=== PATIENT | female | born 1975 | race Caucasian/White ===

== ENCOUNTER 2023-07-13 11:41 | Outpatient (REF) | payer OTHER, SELFPAY ==
[2023-07-13 13:51] LABS: Hematocrit 44.6 % (37.0-47.0); Hemoglobin 14.4 g/dl (12.0-16.0); Mean Corpuscular HGB Conc 32.3 g/dl (31.0-35.0); Mean Corpuscular Hemoglobin 30.1 pg (27.0-33.0); Mean Corpuscular Volume 93.1 fL (80.0-98.0); Mean Platelet Volume 9.4 fL (9.4-12.3); Platelet Count 324 X10*3/uL (160-400); Red Blood Count 4.79 X10*6/uL (4.20-5.50); Red Cell Distribution Width 12.9 % (11.0-16.0)
[2023-07-13 14:41] LABS: Alanine Aminotransferase 16 U/L (0-31); Albumin Level 4.2 g/dL (3.5-5.0); Alkaline Phosphatase 66 U/L (39-117); Anion Gap 12 (12-20); Aspartate Amino Transferase 15 U/L (5-31); Bilirubin Total 0.6 mg/dL (0.0-1.0); Blood Urea Nitrogen 8 mg/dL (9-16); C Reactive Protein 2.51 mg/dL (< or = 0.50); Calcium 9.8 mg/dL (8.4-10.2); Carbon Dioxide 31 mmol/L (22-29); Chloride 102 mmol/L (96-108); Estimated Glomerular Filt Rate > 60; Glucose Random 83 mg/dL (60-115); Potassium 4.2 mmol/L (3.3-5.1); Sodium 141 mmol/L (135-145); Total Protein 7.4 g/dL (6.5-8.0)
[2023-07-13 14:46] LABS: TSH reflex Free T4 2.82 uIU/mL (0.32-4.0)
[2023-07-16 13:33] LABS: Transglutaminase IgA <1.0 U/mL
[2023-07-16 13:58] LABS: Immunoglobulin A 223 mg/dL (47-310)
== END 2023-07-13 11:42 | disposition home or self-care (01) ==
LOC: HO.LAB 11:41
PROVIDERS: PCP Internal Medicine; Visit Provider Internal Medicine
DX: R10.84 Generalized abdominal pain (principal); K52.9 Noninfective gastroenteritis and colitis, unspecified; R63.4 Abnormal weight loss
CPT/HCPCS: 36415; 80053; 82784; 84443; 85027; 86140; 86364

== ENCOUNTER 2023-07-13 11:41 | Outpatient (AMB) | payer OTHER, SELFPAY ==
--- NOTE | 2023-07-13 11:50 | MHC.OFFVIS ---
Intake Vital Signs 07/13/23 11:51 Height 5 ft 10 in Weight 198 lb 6.656 oz BMI 28.5 BP 117/79 Blood Pressure Location Lt brachial Position Sitting Pulse 90 Intake Visit Reasons: abdominal pain, r/o Chrons with [facility] Intake Note: Waleska presents in the office as a new patient for abdominals pains to rule out crohns. CC: ED in over the weekend and she states that her body is just going haywire. Allergies No Known Allergies Allergy (Verified 07/13/23 11:51) HPI HPI Comments History of Present Illness Details This is a 48 y.o F with no significant PMH who is here for gastrointestinal sx. Pt reports onset of abdominal pain and watery diarrhea suddenly in March assoc with loss of appetite and weight loss of 10 lbs since Mar. Sx lasted a few weeks before getting better spontaneously. Pt underwent infectious work up which was negative. Had return of sx in May at which point had Prednisone and Flagyl Rxed for 2 weeks. Abd pain improved but diarrhea was more or less unchanged. Pt has also noticed other sx including a rash on her legs which she describes as red raised lesions on her shins as well as knee pain and stiffness. Also reports 4 days of eye redness which was painless and without discharge. Also was seen in [facility] for lower back pain with L hip pain past weekend. Fam hx neg for CRC or IBD. Review of Systems Const All systems reviewed & are unremarkable except as noted in HPI and below Physical Exam Vital Signs: Last Vital Signs Pulse 90 07/13/23 11:51 BP 117/79 07/13/23 11:51 BMI result Body Mass Index 28.5 Gen appear: NAD HEENT: nonicteric, no cervical lymphadenopathy Abd: soft, nontender, nondistended, bowel sounds + Ext: no peripheral edema Neuro: A/Ox3, noted to move all extremities spontaneously Psych: interacting appropriately Assessment & Plan Assessment & Plan (1) Diffuse abdominal pain: Code(s): R10.84 - Generalized abdominal pain (2) Unintentional weight loss: Code(s): R63.4 - Abnormal weight loss (3) Chronic diarrhea: Code(s): K52.9 - Noninfective gastroenteritis and colitis, unspecified Plan DDx include IBD rosalia given extra-intestinal manifestations including rash and joint pains, celiac, SIBO, secretory diarrhea, IBS, malignancy less likely. Plan: - CBC, CMP - CRP and fecal calpro - celiac serology - TSH to r/o hyperthyroidism - EGD/colo to be booked in 4-6 weeks for luminal eval. Split PEG prep Rxed and instructions reviewed. Follow up after endoscopy Orders: Orders Calprotectin, Fecal Today K52.9 - Noninfective gastroenteritis and colitis, unspecified Complete Blood Count no Diff Today K52.9 - Noninfective gastroenteritis and colitis, unspecified Immunoglobulin A Today K52.9 - Noninfective gastroenteritis and colitis, unspecified C Reactive Protein Today K52.9 - Noninfective gastroenteritis and colitis, unspecified Comprehensive Met. Panel Today K52.9 - Noninfective gastroenteritis and colitis, unspecified Transglutaminase IgA Today K52.9 - Noninfective gastroenteritis and colitis, unspecified TSH reflex Free T4 Today K52.9 - Noninfective gastroenteritis and colitis, unspecified Medications: New peg 3350-electrolytes 236-22.74-6.74 -5.86 gram (Golytely) as per split prep instructions, until fecal effluent is clear 240 mL PO Q10M 4,000 mL 0RF colonoscopy Coding Level of Care Code New Pt Level 4 (22801) Diagnoses Diffuse abdominal pain R10.84 Unintentional weight loss R63.4 Chronic diarrhea K52.9
[2023-07-13 11:51] VITALS: BP 117/79; PULSE 90; BMI 28.5
== END 2023-07-13 12:31 | disposition home or self-care (01) ==
PROVIDERS: PCP Internal Medicine; Visit Provider Internal Medicine
DX: R10.84 Generalized abdominal pain (principal); R63.4 Abnormal weight loss; K52.9 Noninfective gastroenteritis and colitis, unspecified
CPT/HCPCS: 99204

== ENCOUNTER 2023-07-27 10:48 | Outpatient (REF) | payer OTHER, SELFPAY ==
[2023-08-02 17:48] LABS: Calprotectin, Fecal 1940 mcg/g
== END 2023-07-27 10:49 | disposition home or self-care (01) ==
LOC: HO.LNP 10:48
PROVIDERS: Visit Provider Internal Medicine
DX: K52.9 Noninfective gastroenteritis and colitis, unspecified (principal)
CPT/HCPCS: 83993

== ENCOUNTER 2023-10-18 06:19 | Day surgery (SDC) | payer OTHER, SELFPAY ==
--- NOTE | 2023-10-17 12:03 | HO.ANESPROP2 ---
Documented by User: Reva Leger NP 10/17/23 12:03 HPI - Anesthesia Eval Consult details Narrative: 48yo F for Upper Endoscopy and Colonoscopy PMFSH Active Problems Active Problems: All Active Problems Unintentional weight loss (Acute) Diffuse abdominal pain (Acute) Chronic diarrhea (Acute) Surgical History Surgical History (Updated 10/18/23 @ 06:30 by Salina Denton, RN) Previous section Social History Social History Patient Tobacco Use Status: Never used Tobacco Use of substances other than those prescribed or required for medical reasons: No Are you DNR?: No Advance Directives: No Advance Directives Information Provided: Yes Meds Allergies Allergy/AdvReac Type Severity Reaction Status Date / Time No Known Allergies Allergy Verified 10/18/23 06:30 Home Medications ?Medication ?Instructions ?Recorded ?Confirmed ?Last Taken ?Type Saccharomyces boulardii 250 mg 250 mg PO BID 07/13/23 Unknown History capsule (Daily Probiotic (S. boulardii)) turmeric 400 mg capsule mg PO 07/13/23 Unknown History Assessment and Plan Assessment Anesthesia Assessment: Chart Reviewed Documented by User: Matt Mcintosh MD 10/18/23 07:26 PMFSH Family History Family history of problems with anesthesia: No Surgical History Surgical History (Updated 10/18/23 @ 06:30 by Salina Denton RN) Previous section History of Problems with Anesthesia: No Social History Social History Patient Tobacco Use Status: Never used Tobacco Use of substances other than those prescribed or required for medical reasons: No Are you DNR?: No Advance Directives: No Advance Directives Information Provided: Yes Meds Allergies Allergy/AdvReac Type Severity Reaction Status Date / Time No Known Allergies Allergy Verified 10/18/23 06:30 Home Medications ?Medication ?Instructions ?Recorded ?Confirmed ?Last Taken ?Type Saccharomyces boulardii 250 mg 250 mg PO BID 07/13/23 Unknown History capsule (Daily Probiotic (S. boulardii)) turmeric 400 mg capsule mg PO 07/13/23 Unknown History Exam Airway Mallampati Class: II TM Dist: >3cm Neck ROM: Full Loose/Missing/Broken Teeth: No Heart: rrrcta Lungs: cta Assessment and Plan Assessment Anesthesia Assessment: Anesthesia Plan Discussed Final Anesthetic Review Family History of Problems with Anesthesia: No History of Problems with Anesthesia: No NPO: Yes ASA Class: II Final Preanesthetic Review: No Changes in Pt Med Stat, Meds/Allgs Chart Reviewed, Consent Obtained/Reviewed and Anes Risks/Benef Reviewed Patient Risk: Intermediate Procedure Risk: Intermediate Anesthetic Plan Anesthetic Plan: TIVA Disposition: Standard PACU
[2023-10-18 06:31] VITALS: BMI 29.1
[2023-10-18 06:55] VITALS: BP 127/89; PULSE 69; RESP 15; TEMP 36.6; O2SAT 96
[2023-10-18] MEDS: Lactated Ringers 1,000 ML 100 ML IVCONT (07:00)
[2023-10-18 07:13] LABS: UPreg QC Valid YES; Urine Pregnancy NEGATIVE (NEGATIVE)
--- NOTE | 2023-10-18 07:53 | MHC.SHP ---
Pre-Procedural Eval Section A - 24 Hr Update-Section A only Date of Service: 10/18/23 Section B - Complete if H&P > 30 days Chief Complaint: Noninfective gastroenteritis and colitis, Relevant Family History (Specify if Yes): No Relevant Social History: None Present Medications: None Medical History: No relevant PMH History of Previous Operations: No relevant previous surgery Allergies: Allergies Allergy/AdvReac Type Severity Reaction Status Date / Time No Known Allergies Allergy Verified 10/18/23 06:30 Review of Systems Review of Systems Comment: 10 point ROS negative except as previously documented Exam Exam Comment: Gen appear: No acute distress HEENT: no icterus Chest: No overt resp distress Abd: soft, nontender, nondistended Psych: Stable affect, answering questions appropriately Neuro: A/Ox3 noted to move all extremities spontaneously Ext: no peripheral edema Plan Diagnosis/Plan: Unchanged I have reviewed the history and physical and performed a pertinent physical examination on my patient. No changes have occurred unless specified. Patient reports doing acupuncture therapy, and has noticed improvement in her abdominal pain as well as diarrhea. Weight curve has stabilized. Time Spent With Patient Time: Total time managing care of this patient today ____ minutes.
--- NOTE | 2023-10-18 07:54 | P.OPN-COLO_ITS ---
Colonoscopy Operative Note Operative Note Date of Service: 10/18/23 Narrative: Procedure: Upper endoscopy and colonoscopy Indication: Abd pain, diarrhea, weight loss Endoscopist: Shirley Rainey MD Anesthesia Provider: Dr Howard Mcintosh Anesthesia type: MAC Instrument: [id number] and [id number]-[id number] EGD Procedure:?? The procedure, indications, preparation and potential complications were reviewed with the patient, who indicated understanding and gave written informed consent to proceed. The endoscope was introduced through the mouth, and advanced to the 2nd part of the duodenum. The mucosa was carefully examined on slow withdrawal of the endoscope. The patient tolerated the procedure well. There were no immediate complications.? EGD Findings:? * Esophagus:? Normal esophageal mucosa. Z line was at 40 cm. There was a small hiatal hernia. Middle and lower esophagus biopsies were taken to rule out eosinophilic esophagitis. * Stomach:? Normal gastric mucosa. Retroflexion was performed in the cardia that showed Hill grade 2 hiatal hernia. Random cold forceps biopsies were taken to rule out H pylori. * Duodenum:? Erythema and erosions in the duodenal bulb. Cold forceps biopsies were taken from the duodenal bulb and 2nd portion of the duodenal to rule out celiac sprue. Colonoscopy Procedure:? The patient was then turned for the colonoscopy. A digital rectal exam was performed which was abnormal for external hemorrhoids.? A distal attachment cap was affixed to the tip of the scope and the colonoscope was then inserted through the anus and advanced through the colon and advanced to the cecum at 75 cm and terminal ileum.? Appendiceal orifice and ileocecal valve were identified. Mucosa was carefully examined under high definition white light as the instrument was slowly withdrawn in a retrograde panoramic fashion. Retroflexion was performed in ascending colon and rectum. The procedure was not difficult. The quality of the prep was BBPS: 2+2+2 = adequate Withdrawal time 10 minutes Limitations: No limitations Findings: Mucosa: Normal colon mucosa and terminal ileum mucosa. Cold forceps biopsies were taken from the right and left side of the colon to rule out microscopic colitis. Protruding lesions: * Two sessile polyp of size 1-2 mm were noted in the transverse colon. Pit pattern appeared normal, but the polypoid tissue was excised completely anyway with cold forceps. * Large internal hemorrhoids without stigmata of recent bleeding. Impression: 1. Normal esophagus (biopsy) 2. Hiatal hernia 3. Normal stomach (biopsy) 4. Bulbar duodenitis (biopsy) 5. Normal colon and terminal ileum mucosa (biopsy) 6. Two polyps removed 7. Internal and external hemorrhoids Recommendations:?? * Follow-up path results * Start omeprazole 20 mg once daily for duodenitis, to be continued for 6-8 weeks. * No obvious colitis was noted on exam today, despite a high fecal calpro of >1900 in July. * If no histological evidence of inflammatory colitis either, we will proceed with CT enterography. * Repeat colonoscopy for asymptomatic colorectal cancer screening in 7-10 years.
[2023-10-18 08:40] VITALS: BP 110/73; PULSE 68; RESP 17; TEMP 36.3; O2SAT 98
[2023-10-18 08:55] VITALS: BP 112/72; PULSE 72; RESP 16; O2SAT 99
[2023-10-18 09:10] VITALS: BP 115/69; PULSE 70; RESP 16; TEMP 36.3; O2SAT 99
== END 2023-10-18 09:27 | disposition home or self-care (01) ==
PROVIDERS: Nurse Practitioner; PCP Internal Medicine; Visit Provider Internal Medicine
PROC: (CPT 45380; principal; 2023-10-18 07:40)
DX: K52.9 Noninfective gastroenteritis and colitis, unspecified (principal); R10.84 Generalized abdominal pain; R63.4 Abnormal weight loss; Z68.28 Body mass index [BMI] 28.0-28.9, adult; K63.5 Polyp of colon; K64.8 Other hemorrhoids; K64.4 Residual hemorrhoidal skin tags; K29.80 Duodenitis without bleeding; K44.9 Diaphragmatic hernia without obstruction or gangrene
CPT/HCPCS: 45380; 43239; 36415; 81025; 81405; 81479; 82397; 83520; 86140; 88305; 88313; 88342; 88346; 88350; J2704

== ENCOUNTER → 2023-10-18 06:19 | Outpatient (BNV) | payer OTHER, SELFPAY | PROVIDERS: PCP Internal Medicine; Visit Provider Internal Medicine | DX: K29.80 Duodenitis without bleeding (principal); R63.4 Abnormal weight loss; R19.7 Diarrhea, unspecified; K64.8 Other hemorrhoids; D12.3 Benign neoplasm of transverse colon | CPT/HCPCS: 43239; 45380 ==

== ENCOUNTER 2023-12-27 08:01 | Outpatient (REF) | payer OTHER, SELFPAY ==
--- NOTE | ~2023-12-27 | CT_ITS ---
EXAMINATION: CT ENTEROGRAPHY ABDOMEN AND PELVIS WITH CONTRAST CLINICAL INFORMATION: Gastroenteritis and colitis, unspecified. COMPARISON: None available. TECHNIQUE: Incomplete ingestion of oral contrast; per the technologist, the patient drank a total of 65 mL of Isovue 350. The patient was injected with 85 mL Omnipaque 350 intravenous contrast which was administered without adverse effect. Coronal and sagittal reformatted images were obtained at the technologist's workstation. This CT examination was performed using dose optimization techniques as appropriate, variously including the following: *Automated exposure control *Adjustment of mA and/or kV according to patient size (this includes techniques or standardized protocols for targeted exams where dose is matched to indication/reason for exam; i.e. extremities or head) *Use of iterative reconstruction technique DLP: 676 mGy-cm FINDINGS: GASTROINTESTINAL FINDINGS: Stomach: Well-distended and normal in appearance. Small intestine: Limited evaluation due to underdistention. Within limitations, no significant hyperenhancement or inflammatory changes. Normal appearance of the terminal ileum and appendix. Large intestine: A few colonic diverticuli without pericolonic inflammatory changes. Round high density observation in the splenic flexure measuring 0.8 cm (5:261) could represent ingested debris, high density stool or a polyp. Additional findings: No abnormal fatty proliferation or enhancement of the vasa recta. No significant mesenteric or retroperitoneal lymphadenopathy is seen. No abdominal abscess or fistulous tract demonstrated. ABDOMINAL AND PELVIC CT FINDINGS: Liver, gallbladder, biliary tract: The liver is normal in size, morphology and attenuation. No liver lesion. Normal appearance of the gallbladder. No biliary ductal dilatation. Pancreas: A 0.8 cm pancreatic lipoma versus fatty cleft is noted in the anterosuperior distal body (4:24), for which no imaging followup is recommended. Spleen: Unremarkable. Adrenal glands and kidneys: No adrenal nodule/mass. Symmetric nephrograms. No nephrolithiasis or hydronephrosis. Extrarenal pelvis with mild pelviectasis, AP diameter 2.5 cm. Bladder: Unremarkable. Pelvis: IUD in satisfactory positioning within the endometrial canal. Benign-appearing 3.5 cm right ovarian cyst, almost certainly benign and for which no imaging followup is recommended. Asymmetric enlargement of left periuterine/parametrial vasculature and left gonadal vein which could indicate pelvic venous insufficiency. Lymphovascular structures: No lymphadenopathy. Normal caliber abdominal aorta. The main portal vein and SMV are patent. Bones: Nonaggressive-appearing fibro-osseous lesion in the posterior right iliac bone measuring 1.8 cm (5:591). Nonaggressive-appearing sclerotic foci in the pelvis, for example posterior left acetabulum (5:757), most likely representing bone islands. Lung bases: No focal consolidation or pleural effusion. CT/CT enterography IMPRESSION: Within limitations of small bowel underdistention, no definite abnormality to suspect active inflammatory bowel disease. A 0.8 cm high density oval observation in the colonic splenic flexure could represent ingested debris, stool or a polyp; consider further evaluation with colonoscopy. Asymmetric enlargement of left periuterine/parametrial vasculature and left gonadal vein which could indicate pelvic venous insufficiency. Electronically signed by: Michelle Patrick MD 03/04/2024 04:13 PM EDT
[2023-12-27 09:30] LABS: MANUAL DIFF FLAG NO
[2023-12-27 09:51] LABS: Basophils Absolute Auto 0.1 X10*3/uL (0.0-0.2); Basophils Percent Auto 0.8 % (0-2); Eosinophils Absolute Auto 0.2 X10*3/uL (0.0-0.4); Eosinophils Percent Auto 3.2 % (0-4); Hemoglobin 14.9 g/dl (12.0-16.0); Imm Gran Abs Auto 0.02 X10*3/uL (0.00-0.03); Imm Gran Pct Auto 0.3 % (0.0-0.4); Lymphocytes Absolute Auto 1.5 X10*3/uL (1.2-4.9); Lymphocytes Percent Auto 25.6 % (20-40); Mean Corpuscular HGB Conc 33.1 g/dl (31.0-35.0); Mean Corpuscular Hemoglobin 31.2 pg (27.0-33.0); Mean Corpuscular Volume 94.3 fL (80.0-98.0); Mean Platelet Volume 9.6 fL (9.4-12.3); Monocytes Absolute Auto 0.5 X10*3/uL (0.1-1.2); Monocytes Percent Auto 7.6 % (2-11); Neutrophils Absolute Auto 3.7 x10*3/uL (2.0-8.3); Neutrophils Percent Auto 62.5 % (45-73); Platelet Count 221 X10*3/uL (160-400); Red Blood Count 4.77 X10*6/uL (4.20-5.50); Red Cell Distribution Width 12.1 % (11.0-16.0); White Blood Count 5.9 X10*3/uL (4.8-10.8)
[2023-12-27 10:01] LABS: Alanine Aminotransferase 25 U/L (0-31); Albumin Level 4.4 g/dL (3.5-5.0); Alkaline Phosphatase 50 U/L (39-117); Aspartate Amino Transferase 21 U/L (5-31); Bilirubin Direct 0.4 mg/dL (0.0-0.5); Bilirubin Total 1.3 mg/dL (0.0-1.0); Blood Urea Nitrogen 15 mg/dL (9-16); C Reactive Protein < 0.04 mg/dL (< or = 0.50); Estimated Glomerular Filt Rate > 60; Total Protein 7.1 g/dL (6.5-8.0)
[2023-12-27] MEDS: iohexoL 350 MG/ML 100 ML INFUS..BTL IV (10:05)
[2023-12-27] MEDS: Sorbitol/Mannit/Xanth Imaging 500 ML LIQUID 1500 ML PO (10:06)
== END 2023-12-27 08:02 | disposition home or self-care (01) ==
LOC: HO.CT 08:01
PROVIDERS: Internal Medicine Gastroenterology; PCP Internal Medicine; Visit Provider Nurse Practitioner Family
DX: K52.9 Noninfective gastroenteritis and colitis, unspecified (principal); R10.84 Generalized abdominal pain; R10.11 Right upper quadrant pain; R63.4 Abnormal weight loss; K50.10 Crohn's disease of large intestine without complications
CPT/HCPCS: 36415; 74177; 80076; 82565; 84520; 85025; 86140; Q9967